=== PATIENT | female | born 1970 | race Caucasian/White ===

== ENCOUNTER → 2020-12-15 | Outpatient (CLI) | payer BC ==
[2020-12-16 08:14] LABS: RHEUMATOID ARTHRITIS FACTOR <10.0 IU/mL (0.0-13.9)
[2020-12-20 00:11] LABS: CCP ANTIBODIES IGG/IGA 14 units (0-19)
== END ==
LOC: LAB 12:19
PROVIDERS: Nurse Practitioner Family
DX: M25.50 Pain in unspecified joint (principal); E03.9 Hypothyroidism, unspecified; M79.10 Myalgia, unspecified site; D89.9 Disorder involving the immune mechanism, unspecified; R76.8 Other specified abnormal immunological findings in serum
CPT/HCPCS: 36415; 82550; 82728; 83520; 85652; 86140; 86200; 86431